=== PATIENT | female | born 1965 | race Caucasian/White ===

== ENCOUNTER 2019-11-10 10:00 | Outpatient (CLI) | payer OTHER | END 2019-11-10 23:59 | disposition home or self-care (01) | LOC: CFH 10:00 | PROVIDERS: ATTEND Nurse Practitioner | DX: M19.042 Primary osteoarthritis, left hand (principal); M19.041 Primary osteoarthritis, right hand; M77.9 Enthesopathy, unspecified | CPT/HCPCS: 73523 ==